=== PATIENT | male | born 1990 | race African-American/Black ===

== ENCOUNTER 2019-09-25 20:41 | Emergency (ER) | payer MEDICAID ==
[~2019-09-25] VITALS: Ht 182.9 cm; Wt 87.0 kg
[2019-09-25] MEDS ORDERED: ONDANSETRON HCL 4MG/2ML INJ IV STA (21:13)
[2019-09-25] MEDS ORDERED: SODIUM CHLORIDE 0.9% 1,000 ML IV ONE (21:13)
[2019-09-25] MEDS ORDERED: KETOROLAC 30MG/ML VIAL IV STA (21:13)
[2019-09-25 21:59] LABS: BASOPHILS % 1.6 % (0.0-2.0); EOSINOPHILS % 1.2 % (0.0-5.0); HEMATOCRIT. 25.4 % (42.0-52.0); HEMOGLOBIN. 8.8 g/dL (14.0-18.0); LYMPHOCYTES % 23.8 % (20.0-50.0); MEAN CORPUSCULAR HEMOGLOBIN 33.7 pg (28.0-32.0); MEAN CORPUSCULAR VOLUME 97.3 fL (80.0-94.0); MEAN PLATELET VOLUME 8.1 fl (7.4-10.4); MONOCYTES % 10.4 % (2.0-8.0); PLATELET 234 x1000/uL (130-400); RED BLOOD CELL COUNT 2.61 mill/uL (4.7-6.1); RED CELL DISTRIBUTION WIDTH 22.2 % (11.6-14.6)
[2019-09-25 22:01] LABS: CHLORIDE 110 mEq/L (98-107)
[2019-09-25] MEDS ORDERED: MORPHINE SULFATE 4 MG/ML CPJ (NOT FOR IM USE) IV STA (22:06)
[2019-09-25] MEDS ORDERED: DIPHENHYDRAMINE 50MG CAPSULE PO ONE (22:15)
[2019-09-25 22:28] LABS: PLATELET ESTIMATE NORMAL
[2019-09-25] MEDS ORDERED: FENTANYL CITRATE/PF 50MCG/ML 2ML VIAL IV ONE (23:15)
[2019-09-26 00:10] VITALS: BP 149/79
== END 2019-09-26 00:50 | disposition left against medical advice (07) ==
LOC: ER 20:41 → ENRESERV 09-26 00:46 → CANRESERV 09-26 00:46 → ER 09-26 00:50 → CANBEDREQ 09-26 00:52
DX: D57.00 Hb-SS disease with crisis, unspecified (principal); S52.592A Other fractures of lower end of left radius, initial encounter for closed fracture; W01.0XXA Fall on same level from slipping, tripping and stumbling without subsequent striking against object, initial encounter; Y93.89 Activity, other specified; Y92.89 Other specified places as the place of occurrence of the external cause
CPT/HCPCS: 29125; 36415; 71045; 73110; 80053; 85025; 85044; 93005; 96374; 96375; 99284; J1885; J2270; J2405; J3010; J7030; Q0163; Z7610; A4565